=== PATIENT | female | born 1975 | race Caucasian/White ===

== ENCOUNTER 2019-07-05 22:04 | Emergency (ER) | payer OTHER ==
[~2019-07-05] VITALS: Ht 167.6 cm; Wt 59.0 kg
[~2019-07-05 22:04] MED LIST: FLEXERIL PO; MOBIC15 MG PO; MULTI VITAMIN1 EACH PO; NORCO 5-325 TA1 EACH PO; PROZAC20 MG PO; ZPAK PO
[2019-07-05] MEDS ORDERED: BACTRIM DS TAB1 EACH PO (23:30)
[2019-07-06] MEDS ORDERED: ALPRAZOLAM1 MG PO (00:14)
[2019-07-06] MEDS ORDERED: ADDERALL XR 2020 MG PO (00:14)
[2019-07-06] MEDS ORDERED: METHADOSE5 MG PO (00:15)
[2019-07-06] MEDS ORDERED: PAROXETINE HCL20 MG PO (00:15)
[2019-07-06 00:18] VITALS: BP 110/73
== END 2019-07-06 00:21 | disposition home or self-care (01) ==
LOC: ER 22:04
DX: L02.414 Cutaneous abscess of left upper limb (principal); F15.10 Other stimulant abuse, uncomplicated; F17.210 Nicotine dependence, cigarettes, uncomplicated; Z88.0 Allergy status to penicillin

== ENCOUNTER 2019-07-25 12:05 | Emergency (ER) | payer OTHER ==
[~2019-07-25] VITALS: Ht 167.6 cm; Wt 68.0 kg
[~2019-07-25 12:05] MED LIST changes: +ADDERALL XR 2020 MG PO; +ALPRAZOLAM1 MG PO; +BACTRIM DS TAB1 EACH PO; +METHADOSE5 MG PO; +PAROXETINE HCL20 MG PO
[2019-07-25 14:48] VITALS: BP 104/72
== END 2019-07-25 14:49 | disposition home or self-care (01) ==
LOC: ER 12:05
DX: S63.501A Unspecified sprain of right wrist, initial encounter (principal); S53.401A Unspecified sprain of right elbow, initial encounter; F17.210 Nicotine dependence, cigarettes, uncomplicated; Z79.899 Other long term (current) drug therapy; Z88.0 Allergy status to penicillin; W18.09XA Striking against other object with subsequent fall, initial encounter; Y93.89 Activity, other specified; Y92.89 Other specified places as the place of occurrence of the external cause; Y99.8 Other external cause status

== ENCOUNTER 2019-10-27 19:47 | Emergency (ER) | payer OTHER ==
[~2019-10-27] VITALS: Ht 167.6 cm; Wt 63.5 kg
[2019-10-27] MEDS ORDERED: KEFLEX500 M1 PO (20:25)
[2019-10-27 20:43] VITALS: BP 108/74
== END 2019-10-27 20:44 | disposition home or self-care (01) ==
LOC: ER 19:47
DX: T63.331A Toxic effect of venom of brown recluse spider, accidental (unintentional), initial encounter (principal); L03.032 Cellulitis of left toe; F17.210 Nicotine dependence, cigarettes, uncomplicated; Z88.0 Allergy status to penicillin; Z79.899 Other long term (current) drug therapy; Z98.890 Other specified postprocedural states; Z86.19 Personal history of other infectious and parasitic diseases; Y92.89 Other specified places as the place of occurrence of the external cause